=== PATIENT | male | born 1955 | race African-American/Black ===

== ENCOUNTER 2017-03-07 13:32 | Emergency (ER) | payer OTHER ==
[2017-03-07 14:05] VITALS: BP 161/85
[2017-03-07] MEDS ORDERED: Penicillin VK TAB* 250 MG PO ONE (14:34)
--- NOTE | 2017-03-07 14:40 | ED ---
Throat Pain/Nasal Congestion - HPI Summary HPI Summary: 61M presents with dental pain and cough with sore throat. He is Liberian speaking with limited Azeri. He states the dental pain started two days and and is located on the back of his left lower tooth. He denies any fever, chest pain, SOB, difficult swallowing or swelling of neck. He also admits to dry cough and sore throat and nasal congestion for 2 months. He states he has allergies and has been using a nasal spray without relief. He denies any dysphagia but states has irritation of throat that makes want to cough. - History of Current Complaint Chief Complaint: EDThroatPain Time Seen by Provider: 03/07/17 13:36 - Allergies/Home Medications Allergies/Adverse Reactions: Allergies Allergy/AdvReac Type Severity Reaction Status Date / Time No Known Allergies Allergy Verified 07/13/16 08:14 PMH/Surg Hx/FS Hx/Imm Hx Endocrine/Hematology History: Reports: Hx Diabetes Cardiovascular History: Reports: Hx Hypercholesterolemia, Hx Hypertension Denies: Hx Congestive Heart Failure History: Reports: Hx Renal Disease Infectious Disease History: No Infectious Disease History: Denies: Traveled Outside the [place] in Last 30 Days - Family History Known Family History: Positive: Cardiac Disease, Hypertension, Diabetes - Social History Alcohol Use: None Substance Use Type: Reports: None Hx Tobacco Use: No Smoking Status (MU): Never Smoked Tobacco Review of Systems Negative: Fever Positive: Dental Pain, Sore Throat, Nasal Discharge Negative: Chest Pain Positive: Cough. Negative: Shortness Of Breath All Other Systems Reviewed And Are Negative: Yes Physical Exam Triage Information Reviewed: Yes Vital Signs On Initial Exam: Initial Vitals Temp Pulse Resp BP Pulse Ox 98.1 F 79 18 161/85 100 03/07/17 14:00 03/07/17 14:00 03/07/17 14:00 03/07/17 14:00 03/07/17 14:00 Vital Signs Reviewed: Yes Appearance: Positive: Well-Appearing Skin: Positive: Warm, Dry Head/Face: Positive: Normal Head/Face Inspection Eyes: Positive: Normal, EOMI, ALEX, Conjunctiva Clear ENT: Positive: Normal ENT inspection, Pharynx normal - some post nasal drip present, Nasal congestion, TMs normal Dental: Positive: Percussion Tenderness @ - 17. Negative: Abscess @, Bleeding Neck: Positive: Supple, Nontender, No Lymphadenopathy Respiratory/Lung Sounds: Positive: Clear to Auscultation, Breath Sounds Present Cardiovascular: Positive: Normal, RRR Diagnostics - Vital Signs Vital Signs Temp Pulse Resp BP Pulse Ox 03/07/17 14:29 98.1 F 79 18 161/85 100 03/07/17 14:00 98.1 F 79 18 161/85 100 - Laboratory Lab Statement: Any lab studies that have been ordered have been reviewed, and results considered in the medical decision making process. EENT Course/Dx - Course Course Of Treatment: 61 M presents with dental pain for 2 days. It is 17 tooth hurt. denies any fever. no abscess seen will treat with pain medication and antibiotics. also complains of cough and sore throat for 2 months. denies any dysphagia. has history of allergies and is using nasal steriod. told to continue nasal steriod and add zytrec as symptoms likely allergy related. patient understands and agrees with plan - Differential Diagnoses Differential Diagnoses: Allergic Rhinitis, Dental Abscess, Dental Caries, Fractured Tooth - Diagnoses Provider Diagnoses: Pain, dental, Cough, Sore throat Discharge - Discharge Plan Condition: Good Disposition: HOME Prescriptions: Cetirizine* [ZyrTEC 10 MG TAB*] 10 mg PO DAILY #20 tab Penicillin VK TAB* [Penicillin VK 250 mg Tab*] 500 mg PO QID #27 tab oxyCODONE/Acetamin 5/325 MG* [Percocet 5/325 TAB*] 1 tab PO Q6H PRN #8 tab MDD 4 PRN Reason: Pain Patient Education Materials: Toothache (ED) Referrals: Westley Tovar MD [Primary Care Provider] - Additional Instructions: Continue nasal spray for nose Take zyrtec once a day Take antibiotics: 4 times a day for 7 days, first dose given in ED Use ibuprofen or tyenlol every 6 hours and narcotic for break through pain Avoid hard, crunchy food until seen by dentist Follow up with dentist as soon as possible Return to ED if develop fever, shortness of breath, pain with eye movement or swelling around eye Images - Images Dental: 1 - pain
[2017-03-07] MEDS ORDERED: Ibuprofen TAB* 600 MG PO ONE (14:42)
[2017-03-07] MEDS ORDERED: oxyCODONE/Acetamin 5/325 MG* TAB PO ONE (15:06)
== END 2017-03-07 15:13 | disposition home or self-care (01) ==
LOC: ED 13:32
DX: J02.9 Acute pharyngitis, unspecified (principal); K08.89 Other specified disorders of teeth and supporting structures; R05 Cough
CPT/HCPCS: 99282; A9270-GY

== ENCOUNTER → 2017-03-08 14:39 | Emergency (ER) | payer OTHER ==
[2017-03-08 15:00] VITALS: BP 133/82
== END | disposition left against medical advice (07) ==
LOC: ED 14:39
DX: K08.89 Other specified disorders of teeth and supporting structures (principal); Z53.21 Procedure and treatment not carried out due to patient leaving prior to being seen by health care provider

== ENCOUNTER 2017-04-30 10:27 | Emergency (ER) | payer OTHER ==
[2017-04-30] MEDS ORDERED: Ibuprofen TAB* 400 MG PO ONE (12:07)
[2017-04-30 12:35] VITALS: BP 131/80
--- NOTE | 2017-04-30 13:07 | RAD ---
HISTORY: Left arm pain, tingling, subacute trauma COMPARISONS: None TECHNIQUE: Multiple contiguous axial CT scans were obtained of the cervical spine without intravenous contrast, with coronal and sagittal multiplanar reformations. FINDINGS: BRAIN: The visualized brain is unremarkable CENTRAL CANAL: Evaluation of the central canal is limited on CT technique; however, there is no obvious canalicular mass or epidural hemorrhage. ALIGNMENT: The alignment is normal, without subluxation or dislocation. VERTEBRAL BODIES: There is anterolateral marginal osteophyte formation at C5-C6 and C6-C7. There is no displaced fracture or dislocation JOINTS: There is uncovertebral hypertrophy at C6-C7. MUSCULATURE: Unremarkable INTERVERTEBRAL DISCS: There is diffuse loss of intervertebral disc height. AXIAL IMAGES: C2-C3: There is no osseous neural foraminal narrowing or central canal stenosis. C3-C4: There is no osseous neural foraminal narrowing or central canal stenosis. C4-C5: There is no osseous neural foraminal narrowing or central canal stenosis. C5-C6: There is no osseous neural foraminal narrowing or central canal stenosis. C6-C7: There is bilateral uncovertebral hypertrophy with moderate bilateral neural foraminal narrowing. C7-T1: There is no osseous neural foraminal narrowing or central canal stenosis. SOFT TISSUES: The visualized soft tissues of the neck are unremarkable. The prevertebral fat stripe is preserved. OTHER: None. IMPRESSION: DEGENERATIVE DISC DISEASE AND OSTEOARTHRITIS MOST PRONOUNCED AT C5-C6 AND C6-C7. NO ACUTE OSSEOUS INJURY TO THE CERVICAL SPINE
--- NOTE | 2017-04-30 13:40 | ED ---
Upper Extremity Pain - HPI Summary HPI Summary: Patient presents with one month of left shoulder and right thumb pain that began after falling. The pain in the left shoulder and arm feel like a deep ache with movement and keep him awake at night. He has not tried over the counter medication to help with his pain. His thumb hurts with movement as well. No swelling, redness, warmth, N/T in either area. - History of Current Complaint Chief Complaint: EDExtremityUpper Stated Complaint: RT HAND / THUMB PAIN Hx Obtained From: Patient Mechanism Of Injury: Fall From A Standing Position Onset/Duration: Started Weeks Ago - 4, Traumatic, Still Present Timing: Constant Severity Initially: Mild Severity Currently: Moderate Pain Location: Shoulder - left, Finger - right thumb Character: Dull, Aching Aggravating Factor(s): Movement Alleviating Factor(s): Nothing Associated Signs & Symptoms: Positive: Negative Related History: Dominant Hand Right - Allergies/Home Medications Allergies/Adverse Reactions: Allergies Allergy/AdvReac Type Severity Reaction Status Date / Time No Known Allergies Allergy Verified 07/13/16 08:14 PMH/Surg Hx/FS Hx/Imm Hx Endocrine/Hematology History: Reports: Hx Diabetes Cardiovascular History: Reports: Hx Hypercholesterolemia, Hx Hypertension Denies: Hx Congestive Heart Failure History: Reports: Hx Renal Disease Infectious Disease History: No Infectious Disease History: Denies: Traveled Outside the [place] in Last 30 Days - Family History Known Family History: Positive: Cardiac Disease, Hypertension, Diabetes - Social History Occupation: Employed Part-time Lives: With Family Alcohol Use: None Substance Use Type: Reports: None Hx Tobacco Use: No Smoking Status (MU): Never Smoked Tobacco Review of Systems Negative: Fever, Chills Negative: Chest Pain Negative: Shortness Of Breath Positive: Myalgia Negative: Weakness, Paresthesia, Numbness All Other Systems Reviewed And Are Negative: Yes Physical Exam Triage Information Reviewed: Yes Vital Signs On Initial Exam: Initial Vitals Temp Pulse Resp BP Pulse Ox 97.7 F 72 16 130/84 98 04/30/17 10:32 04/30/17 10:32 04/30/17 10:32 04/30/17 10:32 04/30/17 10:32 Vital Signs Reviewed: Yes Appearance: Positive: Well-Appearing, No Pain Distress, Well-Nourished Skin: Positive: Warm, Skin Color Reflects Adequate Perfusion, Dry, Soft Head/Face: Positive: Normal Head/Face Inspection Eyes: Positive: EOMI, ALEX, Conjunctiva Clear ENT: Positive: Hearing grossly normal Respiratory/Lung Sounds: Positive: Breath Sounds Present Cardiovascular: Positive: RRR Musculoskeletal: Positive: Limited @ - Movement in all planes limited by pain in right thumb and left shoulder, Pain @ - TTP base of right thumb; TTP left shoulder deltoid and bicipitacl groove; non-tender cervical spine. Negative: Edema Left, Edema Right Neurological: Positive: Sensory/Motor Intact, Alert, Oriented to Person Place, Time, NV Bundle Intact Distally, Normal Gait Psychiatric: Positive: Affect/Mood Appropriate AVPU Assessment: Alert Diagnostics - Vital Signs Vital Signs Temp Pulse Resp BP Pulse Ox 04/30/17 12:33 98.3 F 74 18 131/80 100 04/30/17 10:32 97.7 F 72 16 130/84 98 - Laboratory Lab Statement: Any lab studies that have been ordered have been reviewed, and results considered in the medical decision making process. - Radiology No standard instances Xray Interpretation: No Acute Changes Radiology Interpretation Completed By: Radiologist - CT No standard instances CT Interpretation: No Acute Changes CT Interpretation Completed By: Radiologist Course/Dx - Diagnoses Differential Diagnosis/HQI/PQRI: Positive: Arthritis, Bursitis, Contusion, Hematoma, Localized Burn, Strain, Sprain Provider Diagnoses: Pain of right thumb, Left shoulder pain Discharge - Discharge Plan Condition: Stable Disposition: HOME Patient Education Materials: Musculoskeletal Pain (ED) Referrals: Westley Tovar MD [Primary Care Provider] - Additional Instructions: Please use ibuprofen 600mg three times daily with meals for the next 5-7 days to decrease pain. Follow-up with your primary care provider in 3-5 days for re- evaluation. Return to the emergency department if symptoms worsen.
--- NOTE | 2017-04-30 14:02 | RAD ---
HISTORY: Right thumb pain, trauma COMPARISONS: None VIEWS: 3, Frontal, lateral, and oblique views of the first digit of the right hand FINDINGS: BONE DENSITY: Normal. BONES: There is no displaced fracture. JOINTS: There is mild osteoarthritis of the first MCP, MCP and interphalangeal joint ALIGNMENT: There is no dislocation. SOFT TISSUES: Unremarkable. OTHER FINDINGS: None. IMPRESSION: NO ACUTE OSSEOUS INJURY. IF SYMPTOMS PERSIST, RECOMMEND REPEAT IMAGING.
--- NOTE | 2017-04-30 14:02 | RAD ---
Indication: LEFT shoulder pain. Comparison: No relevant prior exams available on the [facility]. Technique: Internal rotation AP, external rotation Grashey, scapular Y, axillary views LEFT shoulder Report: Normal acromioclavicular and glenohumeral joint alignment. Minimal AC joint osteophytosis. Type II acromial morphology with small anterior inferior bone spur. Mild glenohumeral joint space narrowing. Negative for fracture, stigmata of calcific tendinopathy, or abnormal soft tissue contour. IMPRESSION: Mild osteoarthritis.
== END 2017-04-30 14:04 | disposition home or self-care (01) ==
LOC: ED 10:27
DX: M79.644 Pain in right finger(s) (principal); M25.512 Pain in left shoulder
CPT/HCPCS: 72125; 99282; A9270-GY

== ENCOUNTER 2017-08-04 11:29 | Emergency (ER) | payer OTHER ==
[2017-08-04] MEDS ORDERED: Aspirin Low Dose CHEW TAB* 81 MG PO ONE (11:43)
[2017-08-04 12:22] LABS: Hematocrit 41 % (42-52); Hemoglobin 13.4 g/dl (14.0-18.0); Mean Corpuscular HGB Conc 33 g/dl (31-36); Mean Corpuscular Hemoglobin 29 pg (27-31); Mean Corpuscular Volume 90 fL (80-94); Mean Platelet Volume 9 um3 (7.4-10.4); Red Blood Count 4.53 10^6/ul (4.0-5.4); Red Cell Distribution Width 14 % (10.5-15)
--- NOTE | 2017-08-04 12:25 | RAD ---
INDICATION: Chest pain COMPARISON: October 08, 2016 TECHNIQUE: An AP portable view obtained at 1220 hours is submitted. FINDINGS: Bones/Soft Tissues: There are no acute bony findings. Cardiomediastinal: The cardiomediastinal silhouette is normal. Lungs: There are no infiltrates. Pleura: There are no pleural effusions. Other: None IMPRESSION: NO ACTIVE DISEASE.
[2017-08-04 12:48] LABS: Albumin 4.4 g/dL (3.2-5.2); BUN/Creatinine Ratio 13.7 (8-20); Calcium 9.2 mg/dL (8.6-10.3); EGFR African American 103.7 (>60); EGFR Non-African American 80.6 (>60); Globulin 2.9 g/dL (2-4); Magnesium 1.9 mg/dL (1.9-2.7); Potassium 4.3 mmol/L (3.5-5.0); Total Bilirubin 0.6 mg/dL (0.2-1.0); Total Protein 7.3 g/dL (6.4-8.9)
[2017-08-04 13:46] LABS: TSH (Thyroid Stimulating Horm) 1.92 mcIU/mL (0.34-5.60)
[2017-08-04 15:18] VITALS: BP 132/81
--- NOTE | 2017-08-05 21:04 | ED ---
Erika Burris Edward, scribed for Howard Villarreal MD on 08/04/17 at 1137 . Hypertension - HPI Summary HPI Summary: 61 y/o male presents to the ED c/o CP and palpitations starting a couple of days ago, along with increased blood pressure. The CP is an intermittent sharp pain that does not radiate and is rated 4/10 in severity currently. On 07/26/17 the pt reported having a blood pressure of 141/101. Yesterday it was 165/103. In the ED it was 144/93. PMHx DM, HLD. No past surgeries. Associated sx: abrasion on L cheek secondary to shaving. - History of Current Complaint Stated Complaint: HIGH BLOOK PRESSURE/FAST HEART RATE Hx Obtained From: Patient Onset/Duration: Started Days Ago Timing: Intermittent Associated Signs & Symptoms: Other: - HTN, palpitations, abrasion @ L cheek secondary to shaving - Allergies/Home Medications Allergies/Adverse Reactions: Allergies Allergy/AdvReac Type Severity Reaction Status Date / Time No Known Allergies Allergy Verified 07/13/16 08:14 PMH/Surg Hx/FS Hx/Imm Hx Previously Healthy: No Endocrine/Hematology History: Reports: Hx Diabetes Cardiovascular History: Reports: Hx Hypercholesterolemia, Hx Hypertension Denies: Hx Congestive Heart Failure History: Reports: Hx Renal Disease - Surgical History Surgery Procedure, Year, and Place: N/A - Family History Known Family History: Positive: Cardiac Disease, Hypertension, Diabetes - Social History Alcohol Use: None Hx Substance Use: No Substance Use Type: Reports: None Hx Tobacco Use: No Smoking Status (MU): Never Smoked Tobacco Review of Systems Constitutional: Negative Eyes: Negative ENT: Negative Positive: Palpitations, Chest Pain, Other - High blood pressure Respiratory: Negative Gastrointestinal: Negative Genitourinary: Negative Musculoskeletal: Negative Skin: Other - abrasion @ L cheek secondary to shaving Neurological: Negative Psychological: Normal All Other Systems Reviewed And Are Negative: Yes Physical Exam - Summary Physical Exam Summary: VITAL SIGNS: Reviewed. GENERAL: Patient is a well-developed and nourished male who is lying comfortable in the stretcher. Patient is not in any acute respiratory distress. HEAD AND FACE: No signs of trauma. No ecchymosis, hematomas or skull depressions. No sinus tenderness. EYES: PERRLA, EOMI x 2, No injected conjunctiva, no nystagmus. EARS: Hearing grossly intact. Ear canals and tympanic membranes are within normal limits. MOUTH: Oropharynx within normal limits. NECK: Supple, trachea is midline, no adenopathy, no JVD, no carotid bruit, no c- spine tenderness, neck with full ROM. CHEST: Symmetric, no tenderness at palpation LUNGS: Clear to auscultation bilaterally. No wheezing or crackles. CVS: Regular rate and rhythm, S1 and S2 present, no murmurs or gallops appreciated. ABDOMEN: Soft, non-tender. No signs of distention. No rebound no guarding, and no masses palpated. Bowel sounds are normal. EXTREMITIES: FROM in all major joints, no edema, no cyanosis or clubbing. NEURO: Alert and oriented x 3. No acute neurological deficits. Speech is normal and follows commands. SKIN: Dry and warm Triage Information Reviewed: Yes Vital Signs On Initial Exam: Initial Vitals BP 144/93 08/04/17 11:38 Vital Signs Reviewed: Yes Diagnostics - Vital Signs Vital Signs Temp Pulse Resp BP Pulse Ox 08/04/17 15:17 98.3 F 56 16 132/81 08/04/17 13:00 16 122/76 08/04/17 12:30 15 145/72 08/04/17 12:00 21 146/96 08/04/17 11:42 98.0 F 75 20 144/93 98 08/04/17 11:38 144/93 - Laboratory Lab Results: Lab Results 08/04/17 08/04/17 08/04/17 Range/Units 12:05 12:05 12:05 WBC 6.0 (3.5-10.8) 10^3/ul RBC 4.53 (4.0-5.4) 10^6/ul Hgb 13.4 L (14.0-18.0) g/dl Hct 41 L (42-52) % MCV 90 (80-94) fL MCH 29 (27-31) pg MCHC 33 (31-36) g/dl RDW 14 (10.5-15) % Plt Count 211 (150-450) 10^3/ul MPV 9 (7.4-10.4) um3 Neut % (Auto) 48.1 (38-83) % Lymph % (Auto) 30.8 (25-47) % Tompkins % (Auto) 10.4 H (1-9) % Eos % (Auto) 8.8 H (0-6) % Baso % (Auto) 1.9 (0-2) % Absolute Neuts (auto) 2.9 (1.5-7.7) 10^3/ul Absolute Lymphs (auto) 1.8 (1.0-4.8) 10^3/ul Absolute Monos (auto) 0.6 (0-0.8) 10^3/ul Absolute Eos (auto) 0.5 (0-0.6) 10^3/ul Absolute Basos (auto) 0.1 (0-0.2) 10^3/ul Absolute Nucleated RBC 0 10^3/ul Nucleated RBC % 0.1 Sodium 136 (133-145) mmol/L Potassium 4.3 (3.5-5.0) mmol/L Chloride 104 (101-111) mmol/L Carbon Dioxide 26 (22-32) mmol/L Anion Gap 6 (2-11) mmol/L BUN 13 (6-24) mg/dL Creatinine 0.95 (0.67-1.17) mg/dL Est GFR ( Amer) 103.7 (>60) Est GFR (Non-Af Amer) 80.6 (>60) BUN/Creatinine Ratio 13.7 (8-20) Glucose 142 H (70-100) mg/dL Lactic Acid (0.5-2.0) mmol/L Calcium 9.2 (8.6-10.3) mg/dL Magnesium 1.9 (1.9-2.7) mg/dL Total Bilirubin 0.60 (0.2-1.0) mg/dL AST 19 (13-39) U/L ALT 24 (7-52) U/L Alkaline Phosphatase 45 (34-104) U/L CK-MB (CK-2) 2.0 (0.6-6.3) ng/mL Troponin I 0.00 (<0.04) ng/mL B-Natriuretic Peptide 11 ( - 100) pg/mL Total Protein 7.3 (6.4-8.9) g/dL Albumin 4.4 (3.2-5.2) g/dL Globulin 2.9 (2-4) g/dL Albumin/Globulin Ratio 1.5 (1-3) TSH 1.92 (0.34-5.60) mcIU/mL 08/04/17 08/04/17 Range/Units 12:05 14:20 WBC (3.5-10.8) 10^3/ul RBC (4.0-5.4) 10^6/ul Hgb (14.0-18.0) g/dl Hct (42-52) % MCV (80-94) fL MCH (27-31) pg MCHC (31-36) g/dl RDW (10.5-15) % Plt Count (150-450) 10^3/ul MPV (7.4-10.4) um3 Neut % (Auto) (38-83) % Lymph % (Auto) (25-47) % Tompkins % (Auto) (1-9) % Eos % (Auto) (0-6) % Baso % (Auto) (0-2) % Absolute Neuts (auto) (1.5-7.7) 10^3/ul Absolute Lymphs (auto) (1.0-4.8) 10^3/ul Absolute Monos (auto) (0-0.8) 10^3/ul Absolute Eos (auto) (0-0.6) 10^3/ul Absolute Basos (auto) (0-0.2) 10^3/ul Absolute Nucleated RBC 10^3/ul Nucleated RBC % Sodium (133-145) mmol/L Potassium (3.5-5.0) mmol/L Chloride (101-111) mmol/L Carbon Dioxide (22-32) mmol/L Anion Gap (2-11) mmol/L BUN (6-24) mg/dL Creatinine (0.67-1.17) mg/dL Est GFR ( Amer) (>60) Est GFR (Non-Af Amer) (>60) BUN/Creatinine Ratio (8-20) Glucose (70-100) mg/dL Lactic Acid 1.4 (0.5-2.0) mmol/L Calcium (8.6-10.3) mg/dL Magnesium (1.9-2.7) mg/dL Total Bilirubin (0.2-1.0) mg/dL AST (13-39) U/L ALT (7-52) U/L Alkaline Phosphatase (34-104) U/L CK-MB (CK-2) (0.6-6.3) ng/mL Troponin I 0.00 (<0.04) ng/mL B-Natriuretic Peptide ( - 100) pg/mL Total Protein (6.4-8.9) g/dL Albumin (3.2-5.2) g/dL Globulin (2-4) g/dL Albumin/Globulin Ratio (1-3) TSH (0.34-5.60) mcIU/mL Result Diagrams: 08/04/17 12:05 08/04/17 12:05 Lab Statement: Any lab studies that have been ordered have been reviewed, and results considered in the medical decision making process. - Radiology CXR Xray Interpretation: No Acute Changes - NO ACTIVE DISEASE Radiology Interpretation Completed By: Radiologist - EKG 1 EKG Interpretation: 11:50 - SR @ [address] wave inversions in II, III and aVF EKG Comparison: No Significant Change - 10/08/16 Hypertension Course/Dx - Course Assessment/Plan: 61 y/o male presents to the ED c/o CP and palpitation starting a couple of days ago along with increased blood pressure. The CP is an intermittent sharp pain that does not radiate and is rated 4/10 in severity currently. On 07/26/17 the pt reported having a blood pressure of 141/101. Yesterday it was 165/103. In the ED it was 144/93. PMHx DM, HLD. No past surgeries. EKG @ 11:50 - SR @ [address] wave inversions in II, III and aVF. No significant change from 10/08/16. CXR SHOWS NO ACTIVE DISEASE. Test results without any significant abnormalities. First trop 0.00. 4 hours later the second troponin was also 0.00. Blood pressure is much improved without any indications 132/81. Pt symptoms have subsided, therefore the pt will be d/c home with f/u with PCP. The pt is hemodynamically stable and A&Ox3. - Diagnoses Differential Diagnosis/HQI PQRI: Angina, Hypertension, Myocardial Infarction Provider Diagnoses: Chest pain, Uncontrolled hypertension Discharge - Discharge Plan Condition: Stable Disposition: HOME Patient Education Materials: Hypertension (ED), Chest Pain (ED) Referrals: Westley Tovar MD [Primary Care Provider] - 3 Days (PLEASE F/U IN 2-3 DAYS) The documentation as recorded by the Erika kathleen Edward accurately reflects the service I personally performed and the decisions made by , Howard Villarreal MD.
== END 2017-08-04 15:17 | disposition home or self-care (01) ==
LOC: ED 11:29
DX: R07.9 Chest pain, unspecified (principal); I10 Essential (primary) hypertension; E11.9 Type 2 diabetes mellitus without complications; E78.5 Hyperlipidemia, unspecified; E78.00 Pure hypercholesterolemia, unspecified
CPT/HCPCS: 36415; 71010; 80053; 82553; 83605; 83735; 83880; 84443; 84484; 85025; 87040; 93005; 99283; A9270-GY

== ENCOUNTER 2017-10-09 11:11 | Day surgery (SDC) | payer OTHER ==
[~2017-10-09 11:11] MED LIST: Acetaminophen TAB* 325 MG PO PRN; Buffered Lidocaine 0.9% SYRIN* 5 ML/SYR SYRINGE INTRADERM ONE; Phenylephr/Ketorolac 1%/0.3% OPH DROP BTL ONE
[2017-10-09] MEDS ORDERED: Midazolam* 1 MG/ML 2 ML VIAL (2 MG) ONE (12:11)
[2017-10-09] MEDS ORDERED: fentaNYL* 50 MCG/ML 2 ML VIAL (100 MCG VIAL) ONE (12:40)
[2017-10-09 13:30] VITALS: BP 134/87
[2017-10-09] MEDS ORDERED: Phenylephrine 2.5% OPTH.SOL* 2 ML BTL ONE (15:27)
[2017-10-09] MEDS ORDERED: Ketorolac 0.5% OPHTH (NF) 0.5 % 5 ML BTL ONE (15:27)
[2017-10-09] MEDS ORDERED: Tropicamide 1% OPTH.SOL* BTL ONE (15:27)
[2017-10-09] MEDS ORDERED: Cyclopentolate 1% OPTH.SOL* 2 ML BTL ONE (15:27)
[2017-10-09] MEDS ORDERED: Neomycin/Polymy/Dex OPHTH.OIN* 3.5 GM ONE (15:27)
[2017-10-09] MEDS ORDERED: Lidocaine 1% MPF* 2 ML VIAL ONE (15:27)
[2017-10-09] MEDS ORDERED: Tetracaine 0.5% OPTH.SOL 4 ML* 1 DROP BTL ONE (15:27)
--- NOTE | 2017-10-10 03:13 | OP ---
DATE OF OPERATION: 10/09/17 - [facility] DATE OF : 55 SURGEON: Clifford Armenta MD [employer] EXAMINER: None. ANESTHESIA: Topical with intravenous sedation. PRE-OP DIAGNOSIS: Cataract, left eye and glaucoma, left eye. POST-OP DIAGNOSIS: Cataract, left eye and glaucoma, left eye. OPERATIVE PROCEDURE: Cataract extraction with posterior chamber intraocular lens implant and eye stent placement, left eye. COMPLICATIONS: None. ESTIMATED BLOOD LOSS: None. DESCRIPTION OF PROCEDURE: The patient was brought to the operating room and received a small amount of intravenous sedation. He was prepped and draped in the usual sterile fashion for ophthalmic surgery and attention was directed to the left eye where a speculum was placed. A paracentesis was created at the 5 o 'clock position and 0.1 cc of 1% preservative free lidocaine was injected into the anterior chamber followed by DisCoVisc. The eye was digitally stabilized while a 2.75 mm keratome was used to create a triplanar clear corneal incision at the 3 o'clock position. A continuous curvilinear capsulorrhexis was created with a cystotome and Utrata forceps. BSS on a cannula was used to hydrodissect the lens from the capsule. Phacoemulsification was performed in a divide-and- conquer technique to create 4 fragments, which were removed. Residual cortical material was removed with irrigation and aspiration. DisCoVisc was used to inflate the capsular bag. An AUOOTO 20.5 Diopter lens was inserted into the capsular bag. Supplemental DisCoVisc was used to deepen the anterior chamber and coat the surface of the cornea. The patient's head was rotated away from the surgeon and a microscope was rotated towards the surgeon. An corneal prism was placed on the surface of the eye and an eye stent on an circulation crew leader was introduced into the anterior chamber. Under direct visualization, the eye stent was inserted into the nasal trabecular meshwork. The circulation crew leader and corneal prism were removed. The eye and the head were returned to upright position as was the microscope. Irrigation and aspiration was performed to remove viscoelastic from the eye. BSS on a cannula was used to hydrate the corneal stroma and seal the wound. At the end of the case, the lens was centered and stable. The eye stent was in place. The eye pressure appeared normal and the wound was watertight. The speculum was removed. Topical Maxitrol ointment was placed on the surface of the eye. The eye was closed, patched, and shielded, and the patient was sent to recovery room in stable condition with postop instructions and followup appointment given. [id number]/[facility] #: [id number] [place]
== END 2017-10-09 13:21 | disposition home or self-care (01) ==
LOC: OREAST 11:11
PROVIDERS: ATTEND Ophthalmology
DX: H25.11 Age-related nuclear cataract, right eye (principal); H40.89 Other specified glaucoma; E11.9 Type 2 diabetes mellitus without complications; Z79.84 Long term (current) use of oral hypoglycemic drugs; K21.9 Gastro-esophageal reflux disease without esophagitis
CPT/HCPCS: A9270-GY; C1783; C9447; J2250; J3010; V2632

== ENCOUNTER 2019-08-05 11:36 | Observation (INO) | payer OTHER ==
--- NOTE | 2019-08-05 12:24 | ED ---
HPI Chest Pain - HPI Summary HPI Summary: Pt is a 63 y/o M presenting to the ED for a chief complaint of chest pain described as a burning sensation that began on 08/04/19. Pt history was translated by Jane, machinist apprentice wood number [id number], as pt is a primary Croatian speaker. Pt describes the chest pain as mild shock. Pt has a cough with copious phlegm from his nose and throat especially after eating and he states he cannot eat because of the phlegm. Patient reports palpitations and asks for his glucose level to be checked, which was 133 at triage. He only checks his blood sugar during visits to his primary care provider every 3 months, because he cannot check his glucose at home. He also admits pain in the bilateral legs from the knee down to the soles of the feet and back pain. He states he exercises daily which is why he believes he has lower extremity and low back pain. His PCP is Dr. Tovar. Pt took his medications today. Pt denies SOB, nausea, vomiting, or fever. During the last 4 years, he has had minor heart problems and he has always been seen at [facility] [place] [facility]. He has not seen the technical consultant to which he was referred because he could not find the address. Pt has a PMHx of DM Type II without insulin, HTN, and hypercholesterolemia. Pt has a past SHx of eye surgery and a FMHx of ND, cardiac problems, and DM. Pt denies tobacco, drug, or alcohol use. Allergies noted. Note: Frantz RN note states pain started today. Pt stated that pain started 08/04/[address] Taylor. Also note that Dr. Taylor evaluated pt, not Dr. Villarreal. - History of Current Complaint Chief Complaint: EDChestPainROMI Time Seen by Provider: 08/05/19 11:44 Hx Obtained From: Patient, Marketing Communication Manager - Marketing Communication Manager [id number], Jane, assists with Croatian translation Onset/Duration: Started Hours Ago, Atraumatic, Still Present Timing: Lasting Hours Initial Severity: Moderate Current Severity: Moderate Pain Intensity: 6 Pain Scale Used: 0-10 Numeric Chest Pain Location: Diffuse Chest Pain Radiates: No Character: Burning, Cough, Productive - with copious phlegm, Other: - also describes chest pain as mild "shock" Aggravating Factor(s): Nothing Alleviating Factor(s): Nothing Associated Signs and Symptoms: Positive: Chest Pain, Palpitations, Cough, Productive Cough, Back Pain, Nasal Congestion, Other: - Bilateral LE pain.. Negative: Shortness of Breath, Fever, Nausea, Nonproductive Cough, Vomiting - Allergy/Home Medications Allergies/Adverse Reactions: Allergies Allergy/AdvReac Type Severity Reaction Status Date / Time lisinopril AdvReac Intermediate Coughing Verified 08/05/19 12:11 Home Medications: Home Medications Deep Sea 0.65% Nasal Cunningham 1 spray BOTH NARES Q4HR PRN 08/05/19 [History Confirmed 08/05/19] PMH/Surg Hx/FS Hx/Imm Hx Previously Healthy: No Endocrine/Hematology History: Reports: Hx Diabetes Cardiovascular History: Reports: Hx Hypercholesterolemia, Hx Hypertension Denies: Hx Congestive Heart Failure - Surgical History Surgical History: Yes Surgery Procedure, Year, and Place: Eye surgery Infectious Disease History: No Infectious Disease History: Denies: Traveled Outside the [place] in Last 30 Days - Family History Known Family History: Positive: Cardiac Disease, Hypertension, Diabetes - Social History Lives: Alone Alcohol Use: None Hx Substance Use: No Substance Use Type: Reports: None Hx Tobacco Use: No Smoking Status (MU): Never Smoked Tobacco Review of Systems Negative: Fever Positive: Palpitations, Chest Pain Positive: Cough - with copious phlegm. Negative: Shortness Of Breath Negative: Vomiting, Nausea Positive: Myalgia - low back and bilateral LE Skin: Negative Neurological: Negative Psychological: Normal All Other Systems Reviewed And Are Negative: Yes Physical Exam - Summary Physical Exam Summary: Appearance: Well-appearing, moderate pain distress, well-nourished Skin: Warm, color reflects adequate perfusion, dry Head: Normal Head/Face inspection, atraumatic Eyes: Conjunctiva clear ENT: Normal inspection Neck: Supple, no nodes, no JVD Respiratory: Lungs clear, normal breath sounds, no respiratory distress Cardio: RRR, No murmur, pulses normal, brisk capillary refill Abdomen: Soft, nontender Bowel sounds: Present Musculoskeletal: Strength Intact/ROM intact, no calf tenderness, no edema. Psychological: Normal Neuro: Alert, muscle tone normal, no focal deficit Triage Information Reviewed: Yes Vital Signs On Initial Exam: Initial Vitals Temp Pulse Resp BP Pulse Ox 97.8 F 65 20 148/83 100 08/05/19 11:45 08/05/19 11:45 08/05/19 11:45 08/05/19 11:45 08/05/19 11:45 Vital Signs Reviewed: Yes Diagnostics - Vital Signs Vital Signs Temp Pulse Resp BP Pulse Ox 08/05/19 11:45 97.8 F 65 20 148/83 100 - Laboratory Lab Results: Lab Results 08/05/19 Range/Units 11:40 POC Glucose (mg/dL) 133 H (70-100) mg/dL Result Diagrams: 08/05/19 12:25 08/05/19 12:25 Lab Statement: Any lab studies that have been ordered have been reviewed, and results considered in the medical decision making process. - Radiology CXR Radiology Interpretation Completed By: Radiologist Summary of Radiographic Findings: IMPRESSION: NO ACUTE CARDIOPULMONARY PROCESS BY RADIOGRAPH. THIS REPORT WAS REVIEWED BY DR. TAYLOR. - EKG 11:38 Cardiac Rate: Bradycardia - 58 BPM EKG Rhythm: Sinus Bradycardia ST Segment: Non-Specific Ectopy: None Summary of EKG Findings: EKG on 08/05/19 at 11:38 shows 58 BPM sinus bradycardia , Nl AVIVCT, nl QTc, flat ST segments in II, III, aVF are now normalized instead of inverted compared with 08/04/17. Reviewed and interpreted by ED physician. Re-Evaluation - Re-Evaluation First Eval Re-Evaluation Time: 13:40 Change: Unchanged Comment: Pt's chest pain is controlled. Pt advised that he will be admitted. Chest Pain Course/Dx - Course Course Of Treatment: Pt is 63 yo primarily Croatian speaking male with hx DM, HTN and hypercholesterolemia presenting with chest pain x 1 day, cough with copious phlegm, low back pain, and bilateral lower extremity pain. Pt does not monitor his glucoses at home, so also asked for his glucose to be checked. It was 133 at triage. Pt's hx and exam were conducted with iPad contract loader. EKG on 08/05/19 at 11:38 shows 58 BPM sinus bradycardia, nml intervals, flat ST in II, III, aVF have normalized and comparable to 08/04/17. ST is now flat instead of inverted. Not a STEMI. EKG was read and interpreted by Dr. Taylor. In the ED course, pt was given ASA 324mg po. Laboratory abnormal findings: Hgb 13.5, Hct 40, absolute eos 0.7, glucose 122, POC glucose 133, magnesium 1.8. Troponin I 0.01 at 14:47 and 0.00 at 18:15 and D-dimer <200. Chest x-ray IMPRESSION: NO ACUTE CARDIOPULMONARY PROCESS BY RADIOGRAPH. Dr. Taylor reviewed this report. Patient will be admitted to [facility] [place] by Dr. Saravia with a diagnosis of chest pain and acute EKG changes. - Chest Pain Differential Diagnosis/HQI/PQRI: Acute ND, ACS, Angina, CHF, GI Disease, Lower Respiratory Infection - Diagnoses Provider Diagnoses: Chest pain, Acute electrocardiogram changes - Provider Notifications Discussed Care Of Patient With: Laine Saravia - agrees to admit Time Discussed With Above Provider: 13:34 Instructed by Provider To: Admit As Observation Discharge ED - Sign-Out/Discharge Documenting (check all that apply): Patient Departure - admit All imaging exams completed and their final reports reviewed: Yes - Discharge Plan Condition: Improved Disposition: ADMITTED TO [facility] - Billing Disposition and Condition Condition: IMPROVED Disposition: Admitted to [facility] - Attestation Statements Document Initiated by Scribe: Yes Documenting Scribe: Ciera Andino Provider For Whom Scribe is Documenting (Include Credential): Almaz Taylor MD. Scribe Attestation: ICiera, scribed for Almaz Taylor MD. on 08/31/19 at 0631. Scribe Documentation Reviewed: Yes Provider Attestation: The documentation as recorded by the scribe, Ciera Andino accurately reflects the service I personally performed and the decisions made by , Almaz Taylor MD. Status of Scribe Document: Viewed
[2019-08-05 12:34] LABS: ABS Basophils 0.1 10^3/ul (0-0.2); ABS Eosinophils 0.7 10^3/ul (0-0.6); ABS Lymphocytes 1.7 10^3/ul (1.0-4.8); ABS Monocytes 0.6 10^3/ul (0-0.8); ABS Neutrophils 2.3 10^3/ul (1.5-7.7); Eosinophil % 13.1 %; Hematocrit 40 % (42-52); Hemoglobin 13.5 g/dL (14.0-18.0); Lymphocyte % 31.8 %; Mean Corpuscular HGB Conc 34 g/dL (31-36); Mean Corpuscular Hemoglobin 31 pg (27-31); Mean Corpuscular Volume 90 fL (80-94); Mean Platelet Volume 9.4 fL (7.4-10.4); Nucleated Red Blood Cells % 0.1; Platelet Count 203 10^3/uL (150-450); Red Blood Count 4.43 10^6 /uL (4.18-5.48); Red Cell Distribution Width 14 % (10-15); White Blood Count 5.4 10^3/uL (3.5-10.8)
[2019-08-05 12:46] LABS: Activated Partial Thrombo Time 34.9 seconds (26.0-38.0); INR 0.97 (0.82-1.09)
[2019-08-05 13:01] LABS: Albumin 4.2 g/dL (3.2-5.2); Albumin/Globulin Ratio 1.6 (1-3); BUN/Creatinine Ratio 11.5 (8-20); Calcium 9.1 mg/dL (8.6-10.3); EGFR African American 95.7 (>60); EGFR Non-African American 79.1 (>60); Globulin 2.6 g/dL (2-4); Magnesium 1.8 mg/dL (1.9-2.7); Potassium 4.2 mmol/L (3.5-5.0); Total Bilirubin 0.4 mg/dL (0.2-1.0); Total Protein 6.8 g/dL (6.4-8.9)
[2019-08-05 13:04] LABS: CKMB ng/mL 2.5 ng/mL (0.6-6.3)
[2019-08-05] MEDS ORDERED: Aspirin 81 mg CHEW TAB* 81 MG TAB.CHEW PO ONE (13:24)
[2019-08-05] MEDS ORDERED: Saline NASAL SPRAY 0.65%* BTL BOTH NARES PRN (14:30)
[2019-08-05] MEDS ORDERED: Pantoprazole IV* 40 MG IV ONE (14:36)
[2019-08-05] MEDS ORDERED: Dextrose 50% VIAL 50 ml IV PUSH PRN (14:46)
[2019-08-05] MEDS ORDERED: Nitroglycerin TAB 0.4 MG* 0.4 MG TAB SL PRN (15:02)
[2019-08-05] MEDS ORDERED: Magnesium Sulfate 1 GM IV* 1 GM/100 ML BAG IV ONE (15:02)
[2019-08-05] MEDS ORDERED: Calcium Carbonate CHEW TAB* 500 MG (TUMS) PO PRN (15:02)
--- NOTE | 2019-08-05 16:45 | ECHO ---
*[facility]* [place] [address] Fax #: [phone] Transthoracic Echocardiogram Patient: Rivas Taylor : 1955 Study Date: 08/05/2019 Age: 63 Gender: M HR: 51 bpm Height: 66 in /167.6 cm BSA: 1.89 m^2 Weight: 174.6 lb /79.4 kg BMI: 28.2 kg/m^2 *Surveillance Operator: * Bibi Cash RD *Referring Physician: * Laine JimenezReading Physician: * Emil Bonilla MD Indications: Chest Pain, unspecified. History: Risk factors: Hypertension. Diabetes mellitus. Dyslipidemia. Conclusions Summary: - Left ventricle: Systolic function is normal. The estimated ejection fraction is 60-65%. Wall motion is normal; there are no regional wall motion abnormalities. - Right ventricle: Systolic pressure is within the normal range. - Mitral valve: There is trace to mild regurgitation. - Aortic valve: There is no evidence of stenosis. There is no significant regurgitation. - Tricuspid valve: There is mild regurgitation. - Pericardium, extracardiac: There is no significant pericardial effusion. - Pulmonary arteries: Systolic pressure is within the normal range. - Study data: No prior study is available for comparison. Study data: Transthoracic echocardiogram. Procedure: Transthoracic echocardiography was performed. Image quality was good. Complete 2D, spectral Doppler, and color flow Doppler. Location: Bedside. Patient status: Inpatient. Patient room number: 444-1. No prior study is available for comparison. Rhythm: Bradycardia. Findings Left ventricle: The cavity size is normal. There is mild concentric hypertrophy. Systolic function is normal. The estimated ejection fraction is 60-65%. Wall motion is normal; there are no regional wall motion abnormalities. There is no consistent Doppler evidence of clinically significant diastolic dysfunction. Right ventricle: The cavity size is mildly dilated. Systolic function is normal. Systolic pressure is within the normal range. Left atrium: The atrium is at the upper limits of normal in size. Right atrium: The atrium is normal in size. Mitral valve: The leaflets are mildly thickened. There is no evidence of stenosis. There is trace to mild regurgitation. Aortic valve: The valve is trileaflet. The leaflets are mildly thickened. There is no evidence of stenosis. There is no significant regurgitation. Tricuspid valve: The leaflets are normal thickness. There is no evidence of stenosis. There is mild regurgitation. Pulmonic valve: The leaflets are normal thickness. There is no evidence of stenosis. There is trace regurgitation. Aorta: Aortic root: The aortic root is appears normal. Ascending aorta: The ascending aorta is mildly dilated. Aortic arch: The aortic arch is appears normal. Pericardium: A prominent pericardial fat pad is present. There is no significant pericardial effusion. Pulmonary arteries: The main pulmonary artery is normal-sized. Systolic pressure is within the normal range. Systemic veins: Inferior vena cava: The vessel is normal in size. There is (>= 50%) respiratory change in the IVC dimension. Measurements Left ventricle Value Ref Aortic valve Value Ref CHADWICK, LAX 4.4 cm 4.2 - 5.8 Raj diam, ED 2.0 cm ----- ESD, LAX 3.1 cm 2.5 - 4.0 Peak v, S 1.37 m/sec ----- FS, LAX 29 % 25 - 43 VTI, S 27.2 cm ----- PW, ED, LAX (H) 1.1 cm 0.6 - 1.0 Mean grad, S 3.0 mm Hg ----- FS 29 % 25 - 43 Peak grad, S 8.0 mm Hg ----- PW, ED (H) 1.1 cm 0.6 - 1.0 LVOT/AV, VTI ratio 0.81 ----- E', lat raj, TDI (L) 9.4 cm/sec >=10.0 E/e', lat raj, 12 Mitral valve Value Ref TDI Peak E 1.12 m/sec ----- E', med raj, TDI 7.0 cm/sec >=7.0 Peak A 0.87 m/sec --- -- E/e', med raj, 16 Decel time 155 ms ----- TDI Peak grad, D 5.0 mm Hg ----- E', avg, TDI 8.2 cm/sec Peak E/A ratio 1.3 ----- E/e', avg, TDI 14 <=14 Pulmonic valve Value Ref LVOT Value Ref Peak v, S 0.86 m/sec ----- Peak cassi, S 1.02 m/sec Peak grad, S 3.0 mm Hg ----- VTI, S 22.0 cm Mean grad, S 2 mm Hg Tricuspid valve Value Ref TR peak v 2.3 m/sec <=2.8 Ventricular septum Value Ref Peak RV-RA grad, S 21 mm Hg ----- IVS, ED (H) 1.2 cm 0.6 - 1.0 Aortic root Value Ref Right ventricle Value Ref Root diam 3.3 cm <4.1 CHADWICK, LAX 3.5 cm CHADWICK minor ax, A4C (H) 4.6 cm 1.9 - 3.5 Ascending aorta Value Ref mid AAo AP diam, S 3.7 cm ----- Pressure, S 24 mm Hg Aortic arch Value Ref Left atrium Value Ref Arch diam 1.8 cm ----- AP dim, ES 3.40 cm 3.00 - 4.00 Decending aorta Value Ref ML dim, A4C 4.1 cm Brendan peak cassi 0.51 m/sec ----- SI dim, A4C 5.4 cm Vol/bsa, ES, 1-p 28 ml/m^2 12 - 37 Pulmonary artery Value Ref A4C Pressure, S 21.0 mm Hg ----- Vol/bsa, ES, A/L 33 ml/m^2 16 - 34 Inferior vena cava Value Ref Right atrium Value Ref Diam 1.9 cm ----- SI dim, ES 4.5 cm 3.4 - 5.3 ML dim, ES, A4C 4.3 cm 2.6 - 4.4 SI dim, ES, A4C 4.5 cm 3.4 - 5.3 Estimated RAP 3 mm Hg Legend: (L) and (H) gwendolyn values outside specified reference range. Prepared and electronically signed by Emil Bonilla MD 08/05/2019 16:45
[2019-08-05] MEDS: Insulin LISPRO* 1 UNITS UNIT SUBCUT SCH ×2 (17:07→20:56)
--- NOTE | 2019-08-05 17:55 | HP ---
CC: Dr. Tovar. HISTORY AND PHYSICAL: DATE OF ADMISSION: 08/05/19 TIME OF EVALUATION: 2:30 p.m. PRIMARY CARE PROVIDER: Dr. Tovar. CHIEF COMPLAINT: Chest pain. HISTORY OF PRESENT ILLNESS: Mr. Taylor is a 63-year-old Indian-speaking male with a past medical h istory of hypertension, hyperlipidemia, type 2 diabetes, postnasal drip/allergic rhinitis who present ed to the emergency room with complaints of chest pain. The patient states that for a couple of weeks, he has had left-sided chest pain that he describes as a discomfort and burning sensation to the left side of his chest rated at 4-5/10. The pain may happe n with exertion and also while at rest, but he thinks it is probably worse when he eats. He describes many years ago he would have problems with "stomach acid." He states that he would eat and he felt like he was "ruminant." He would eat and the food would keep coming back up. He states that he changed his diet and he was trying to eat a healthier stuff with vegetables and fruits and he states that those GI symptoms resolved, but he thinks they are coming back now although they feel li ttle different from before. He denies palpitations, shortness of breath, urinary or bowel complaints . He does complain of significant postnasal drip that he states causes large amount of phlegm that h e has to expectorate. He states that he does not understand where "this much phlegm comes from." He saw his primary care provider recently and was prescribed fluticasone and saline nasal spray, but he does not feel any improvement yet, although this was started recently. PAST MEDICAL HISTORY: 1. Hypertension. 2. Hyperlipidemia. 3. Type 2 diabetes. 4. Allergic rhinitis/postnasal drip. PAST SURGICAL HISTORY: Denies. ALLERGIES: With LISINOPRIL the patient had cough. MEDICATION LIST: 1. Alogliptin 25 mg p.o. daily. 2. Saline nasal spray 1 spray to both nares as needed for allergy symptoms. 3. Fluticasone nasal spray 1 spray to both nares twice a day. 4. Ibuprofen 600 mg p.o. t.i.d. as needed for pain. 5. Losartan 25 mg p.o. daily. 6. Metformin 500 mg p.o. t.i.d. 7. Simvastatin 5 mg p.o. daily. FAMILY HISTORY: The patient's mother in her 70s. He thinks that she had a gastric ulcer that required multiple surgeries and eventually she passed after one of those. His father also in hi s late 60s, but he does not know the cause. SOCIAL HISTORY: The patient denies tobacco, alcohol or drug use. He is from [facility] [place] he has been in the [place] for more than 20 years. 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 He retired in 2016 and moved to the [facility]. He states chikis t he has no family or friends in the [facility]. REVIEW OF SYSTEMS: A 14-point review of systems was performed and all the pertinent negative finding s are in the HPI. PHYSICAL EXAMINATION GENERAL: The patient is a pleasant gentleman lying in the ED stretcher, in no acute distress. VITAL SIGNS: Temperature 97.8, heart rate is 65, respiratory rate is 20, oxygen saturation is 100% o n room air. Blood pressure is 148/83. HEENT: Pupils are equal. Moist mucous membranes. CVS: Normal S1 and S2. Regular rate and rhythm. CHEST: Breath sounds bilaterally with no added sounds. ABDOMEN: Soft, nontender, nondistended. Bowel sounds are present. EXTREMITIES: No edema. NEUROLOGIC: He is alert and oriented x3. Able to move all all 4 extremities. DIAGNOSTIC STUDIES/LAB DATA: The patient had a CBC that showed WBC of 5.4, hemoglobin of 13.5, helder tocrit of 40, platelets of 203 with 41% neutrophils. INR was 0.97. D-dimer is less than 200. Chemi stry showed a sodium of 149, potassium of 4.2, chloride of 106, bicarb of 27, BUN of 11, creatinine o f 0.96. Glucose of 122. Lactic acid was 1.8. Calcium was 9.1, magnesium was 1.8. LFTs were normal . First troponin was 0. BNP was 22. EKG done on 08/05/19 at 11:38 a.m. showed sinus bradycardia at 58 beats per minute with no acute isch emic changes. His EKG today looks better than his EKG in 2017. At that time, he had EKG changes in t he inferior leads with some ST elevation. At that time, he had presented to the emergency room with complaints of chest pain and serial troponins were negative. He was discharged from the ED at that t luisa, but as far as I can see on the records there was no further cardiac workup. ASSESSMENT AND PLAN: Mr. Taylor is a 63-year-old male with a past medical history of hypertension, h yperlipidemia, type 2 diabetes, seasonal allergies who presents to the emergency room with complaints of episodes of chest pain who was going to be admitted for further workup. 1. Chest pain, rule out acute coronary syndrome. Although the patient describes his pain as a burni ng sensation and he thinks it is related to acid in his stomach, he does have risk factors for jesus ry artery disease. I was especially concerned that he had EKG changes in 2017 corresponding to his i nferior wall, but as far as I can see and as far as the patient can tell me, he had no further cardi ac workup performed. He would be admitted as observation to the telemetry floor. I an going to giuseppe ck serial troponins, fasting lipid profile, and he will undergo an exercise stress test in the [facility]. He states that he is able to ambulate with no issues that he lives on the 9th floor and he can go upstairs with no problem, but as I said before, I am especially concerned with the fact that he had EKG changes of the inferior wall in the test and his EKG appears to be improved now. This could repr esent pseudonormalization. He will be continued on aspirin and statin. He is chest-pain free at thi s point, so I do not think further measures including anticoagulation are indicated at this time. Th e patient's pain also has GI characteristics. He will receive pantoprazole for now and he may be in a state of being discharged on a PPI. 2. Hypertension is borderline controlled at this time. I will continue his losartan and monitor. 3. Type 2 diabetes. We will continue metformin and check a hemoglobin A1c, and we will monitor his fingersticks and cover with Lispro sliding scale. If the patient's stress test is positive and requi res a cardiac cath, we will have to discontinue his metformin. 4. Allergic rhinitis. We will continue fluticasone and saline nasal spray. 5. Social isolation. I believe one of the patient's major issue at this time is that he feels isola placido in [place]. He has no family or friends and he feels like "no one in this town speaks Indian." We will request a psychiatric social worker supervisor consultation to give him information about Cultural Groups i n the [place] area. 6. DVT prophylaxis. The patient has a score of 2 on the DVT prophylaxis assessment guide and he kristopher l be started subcu on his heparin. 7. Code status is full. TIME SPENT: Approximately 60 minutes was spent with patient interview, medical record review, and ph ysical examination to complete this admission. More than half of this time was spent [id number]-[id number] wi th the patient and coordination of care. [id number]/CPS #: [id number]
[2019-08-05] MEDS ORDERED: metFORMIN* 500 MG TAB PO SCH (21:00)
[2019-08-05] MEDS: Fluticasone NASAL SPRAY 50MCG* 16 gm SPRAY BTL BOTH NARES SCH (21:04)
[2019-08-05] MEDS: metFORMIN* 500 MG TAB PO SCH (21:06)
[2019-08-05] MEDS: Heparin VIAL(*) 5000 UNITS/ML VIAL (FIVE THOUSAND) SUBCUT SCH (21:07)
[2019-08-06] MEDS ORDERED: Acetaminophen TAB* 325 MG PO PRN (00:35)
[2019-08-06] MEDS: Heparin VIAL(*) 5000 UNITS/ML VIAL (FIVE THOUSAND) SUBCUT SCH (05:29)
[2019-08-06 07:45] LABS: HDL Cholesterol 41.2 mg/dL
[2019-08-06] MEDS: Insulin LISPRO* 1 UNITS UNIT SUBCUT SCH ×2 (08:38→12:49)
[2019-08-06] MEDS ORDERED: Pantoprazole IV* 40 MG IV SCH (09:00)
[2019-08-06] MEDS ORDERED: Losartan TAB* 25 MG PO SCH (09:00)
[2019-08-06] MEDS ORDERED: CMC:Simvastatin TAB(NF) 10 MG TAB PO SCH (09:00)
[2019-08-06] MEDS ORDERED: Aspirin EC TAB* 81 MG TAB.EC PO SCH (09:00)
[2019-08-06] MEDS: Fluticasone NASAL SPRAY 50MCG* 16 gm SPRAY BTL BOTH NARES SCH (12:43)
[2019-08-06] MEDS: metFORMIN* 500 MG TAB PO SCH ×2 (12:43→15:02)
[2019-08-06 12:50] VITALS: BP 131/76
[2019-08-06] MEDS ORDERED: Famotidine TAB* 20 MG PO ONE (14:21)
[2019-08-06] MEDS ORDERED: Enoxaparin(*) 40 MG/0.4 ML SYR SUBCUT SCH (21:00)
--- NOTE | 2019-08-06 23:35 | DS ---
CC: Dr. Maida Mcgee * DISCHARGE SUMMARY: DATE OF ADMISSION: 08/05/19 DATE OF DISCHARGE: 08/06/19 PRIMARY CARE PHYSICIAN: Maida Mcgee MD PRIMARY DIAGNOSIS: Reflux. SECONDARY DIAGNOSES: 1. Hypertension. 2. Type 2 diabetes. 3. Allergic rhinitis. DISCHARGE MEDICATIONS: 1. Metformin 500 mg t.i.d. 2. Losartan 25 mg daily. 3. Alogliptin 25 mg daily. 4. Simvastatin 5 mg daily. 5. Ranitidine 150 mg daily as needed for reflux. 6. Fluticasone 1 spray to both nostrils daily. HISTORY OF PRESENT ILLNESS: Mr. Taylor is a 63-year-old Mexican speaking man with hypertension, diabetes, and allergic rhinitis who presented to the emergency room with complaints of chest pain. He states that for the last couple of weeks, he has had left-sided chest pain that he describes as a discomfort and burning sensation, rated 4 to 5/10. The pain may happen with exertion and also while at rest, but he thinks it is probably worse when he eats. He describes many years ago, he would have problems with his stomach acid , he would eat and then felt like he was a "ruminant" as he would eat the food and then it would keep coming back up. He had changed his diet and was trying to eat healthier with multiple vegetables and fruits; however, his GI symptoms did not resolve and he thinks they are coming back, although it does have a slightly different character than before. He denies palpitations, shortness of breath, urinary or bowel complaints. He complains of significant postnasal drip , which causes a large amount of phlegm that he has to expectorate. He was recently started on fluticasone nasal spray for his phlegm, but has not noticed any improvement yet. HOSPITAL COURSE: The patient was admitted to observation for inpatient stress test. It was noted that he had an EKG change in 2017 concerning for inferior wall changes; however, no further cardiac workup was performed at that time. He was admitted to telemetry service and had no events throughout his hospitalization. By the next day, the patient had undergone a transthoracic echocardiogram, which was without regional wall motion abnormalities and had a normal ejection fraction without significant valvular disease. He also underwent a nuclear medicine scan, which was without fixed or reversible perfusion defects, with assessment of low risk. The patient was referred for social work help for cultural supports as he feels isolated living in [place], as he does not speak [place]ian, and he was referred to [facility] for which he will attend next week. He also requested a Mexican speaking provider and he was referred to Dr. Maida Mcgee. The patient did report heartburn with associated sour taste in his mouth. He also states that he has been recently taking ibuprofen, sometimes daily, for various body pains. By time of discharge, he was educated on his normal cardiac workup, but he was advised to discontinue use of NSAIDs and to follow up with his primary care provider for testing for H. pylori. For this reason, he was switched to an H2 jillian on discharge as PPIs can cause a decrease in sensitivity of H. pylori stool antigen testing. On day of discharge, 10-point review of systems was performed and significant only for epigastric burning associated with sour taste when the patient is lying flat. He denied exertional chest pain or shortness of breath and was able to tolerate food. PHYSICAL EXAMINATION: The patient is a well-appearing man, who appears his stated age, in no acute distress, alert, interactive. HEENT with moist mucous membranes. CN II through XII intact. Neck: No JVD. Supple. Chest: Clear to auscultation bilaterally. Heart: Regular rate and rhythm. No murmurs, gallops , or rubs. Abdomen: Soft, nontender, nondistended. No epigastric tenderness. Extremities: Warm and well perfused without evidence of edema. Neuro: A and O x3. Moves all extremities symmetrically. DIAGNOSTIC STUDIES/LAB DATA: CBC notable for mild anemia at baseline at 13.5 with normal MCV. BMP unremarkable. LFTs unremarkable. Troponins negative x3. LDL 66 with triglycerides 252 and HDL 41. HgbA1c 6.8. TTE with LV systolic function normal without regional wall motion abnormalities , EF 60% to 65%, right ventricle systolic pressure is within normal range, aortic valve normal, tricuspid valve with mild regurgitation, pulmonary artery systolic pressure within normal range. Nuclear medicine scan without perfusion defect, scan considered low risk. DISCHARGE PLAN: The patient is to establish care with new primary care physician, Dr. Maida Mcgee. It is recommended that he undergo testing for H. pylori. He was advised to avoid NSAIDs and to use an H2 jillian as needed for epigastric pain. He should also undergo workup for his mild normocytic anemia, which should include iron studies and age-appropriate cancer screening. The only changes to his home medications include addition of ranitidine to take as needed for heartburn. The patient should also have ongoing diabetic care including screening for proteinuria and annual foot and eye exams. He was educated on return precautions, which include but not limited to exertional chest pain associated with shortness of breath or diaphoresis or new symptoms of nausea and vomiting. He should eat a healthy diet low in processed foods, low in carbs and resume activity as tolerated. DISPOSITION: To home. CONDITION: Good. TIME SPENT: Approximately 60 minutes were spent on discharge of this patient, more than half of which was spent with care coordination at bedside for interview and exam. [id number]/[facility] #: [id number] SCOTT
== END 2019-08-06 15:45 | disposition home or self-care (01) ==
LOC: ED 11:36 → MEDTELE 14:30
PROVIDERS: ADMIT Internal Medicine; ATTEND Internal Medicine
DX: K21.9 Gastro-esophageal reflux disease without esophagitis (principal); I10 Essential (primary) hypertension; E11.9 Type 2 diabetes mellitus without complications; J30.9 Allergic rhinitis, unspecified; Z79.899 Other long term (current) drug therapy; R07.9 Chest pain, unspecified; Z60.4 Social exclusion and rejection; E78.00 Pure hypercholesterolemia, unspecified; R05 Cough
CPT/HCPCS: 36415; 71045; 78452; 80053; 80061; 82550; 82553; 83036; 83605; 83735; 83880; 84484; 85025; 85379; 85610; 85730; 93005; 93017; 93306; 96365; 96366; 96372; 96375; 96376; 99282; A9270-GY; A9502; G0378; J1644; J3475

== ENCOUNTER 2019-09-04 11:32 | Emergency (ER) | payer OTHER ==
--- NOTE | 2019-09-04 12:10 | ED ---
Lower Extremity - HPI Summary HPI Summary: Patient is a 63 y/o M presenting to the ED for a chief complaint of left foot pain. Patient states that he was exercising on 09/03/19 when he tripped over the root of a tree. Patient has had left foot pain since tripping. On triage, patient rates the pain as 6/10 in severity. Patient denies any aggravating or alleviating factors. Patient is able to bear weight on the left leg. Patient denies fever or headache. Patient denies taking any OTC medications for the pain. Patient has a PMHx of DM and HTN. Patient denies any PSHx. Patient denies alcohol, drug, or tobacco use. Allergies noted. Medications reviewed. - History of Current Complaint Chief Complaint: EDExtremityLower Stated Complaint: ANKLE PAIN Time Seen by Provider: 09/04/19 12:07 Hx Obtained From: Patient Mechanism Of Injury: Other - Tripped over the root of a tree Onset/Duration: Hours - Since 09/03/19 Severity Initially: Moderate Severity Currently: Moderate Pain Intensity: 6 Pain Scale Used: 0-10 Numeric Timing: Constant, Lasting Hours - Since 09/03/19 Location: Is Discrete @ - Left foot Associated Signs And Symptoms: Positive: Other - Negative REYES. Negative: Fever Aggravating Factor(s): Nothing Alleviating Factor(s): Nothing Able to Bear Weight: Yes - Allergies/Home Medications Allergies/Adverse Reactions: Allergies Allergy/AdvReac Type Severity Reaction Status Date / Time lisinopril AdvReac Intermediate Coughing Verified 08/05/19 12:11 PMH/Surg Hx/FS Hx/Imm Hx Previously Healthy: Yes Endocrine/Hematology History: Reports: Hx Diabetes Cardiovascular History: Reports: Hx Angina, Hx Hypercholesterolemia, Hx Hypertension Denies: Hx Congestive Heart Failure Respiratory History: Denies: Hx Asthma, Hx Chronic Obstructive Pulmonary Disease (COPD) History: Reports: Hx Renal Disease Denies: Hx Chronic Renal Failure Sensory History: Denies: Hx Contacts or Glasses, Hx Legally Blind, Hx Deafness, Hx Hearing Aid Opthamlomology History: Denies: Hx Contacts or Glasses, Hx Legally Blind EENT History: Denies: Hx Deafness - Surgical History Surgical History: Yes Surgery Procedure, Year, and Place: Eye surgery Infectious Disease History: No Infectious Disease History: Denies: Traveled Outside the [place] in Last 30 Days - Family History Known Family History: Positive: Cardiac Disease, Hypertension, Diabetes - Social History Occupation: Unemployed Lives: Alone Alcohol Use: None Hx Substance Use: No Substance Use Type: Reports: None Hx Tobacco Use: No Smoking Status (MU): Never Smoked Tobacco Review of Systems Negative: Fever Positive: Arthralgia - Left foot Negative: Headache All Other Systems Reviewed And Are Negative: Yes Physical Exam - Summary Physical Exam Summary: Constitutional: Well-developed, Well-nourished, Alert. (-) Distressed Skin: Warm, Dry HENT: Normocephalic; Atraumatic Eyes: Conjunctiva normal Neck: Musculoskeletal ROM normal neck. (-) JVD, (-) Stridor, (-) Tracheal deviation Cardio: Rhythm regular, rate normal, Heart sounds normal; Intact distal pulses; Radial pulses are 2+ and symmetric. (-) Murmur Pulmonary/Chest wall: Effort normal. (-) Respiratory distress, (-) Wheezes, (-) Rales Abd: Soft, (-) tenderness, (-) Distension, (-) Guarding, (-) Rebound Musculoskeletal: (-) Edema. Limited ROM secondary to pain, tenderness over the proximal great toe, worse under the medial. Lymph: (-) Cervical adenopathy Neuro: Alert, Oriented x3 Psych: Mood and affect Normal Triage Information Reviewed: Yes Vital Signs On Initial Exam: Initial Vitals Temp Pulse Resp BP Pulse Ox 96.6 F 70 18 146/94 100 09/04/19 11:33 09/04/19 11:33 09/04/19 11:33 09/04/19 11:33 09/04/19 11:33 Vital Signs Reviewed: Yes Procedures - Sedation Patient Received Moderate/Deep Sedation with Procedure: No Diagnostics - Vital Signs Vital Signs Temp Pulse Resp BP Pulse Ox 09/04/19 11:33 96.6 F 70 18 146/94 100 - Laboratory Lab Statement: Any lab studies that have been ordered have been reviewed, and results considered in the medical decision making process. - Radiology Foot X-ray Radiology Interpretation Completed By: Radiologist Summary of Radiographic Findings: Foot X-ray IMPRESSION: 1. OSTEOPENIA WITH NO DISPLACED FRACTURE. 2. MILD FIRST MTP OSTEOARTHROPATHY. 3. CALCANEAL ENTHESOPHYTES. Reviewed by ED physician. Lower Extremity Course/Dx - Course Assessment/Plan: Patient is here after his foot. Patient's pain on his lateral first toe with a negative x-ray. Patient was given a postop shoe. - Diagnoses Provider Diagnoses: Sprain of left great toe Discharge ED - Sign-Out/Discharge Documenting (check all that apply): Patient Departure - Discharge - Discharge Plan Condition: Stable Disposition: HOME Patient Education Materials: Sprain (ED) Referrals: Westley Tovar MD [Primary Care Provider] - Additional Instructions: Take ibuprofen 600 mg every 6 hours and elevate and ice the leg. Follow up with a primary care provider in 1-3 days. Return to the Emergency Department for any new or worsening symptoms. - Billing Disposition and Condition Condition: STABLE Disposition: Home - Attestation Statements Document Initiated by Netta: Yes Documenting Taniaibjhonatan: Ciera Venegas Provider For Whom Netta is Documenting (Include Credential): Trace Cabral MD Scribe Attestation: Ciera Burris, scribed for Trace Cabral MD on 09/04/19 at 2123. Scribe Documentation Reviewed: Yes Provider Attestation: The documentation as recorded by the Ciera kathleen accurately reflects the service I personally performed and the decisions made by , Trace Cabral MD Status of Scribe Document: Viewed
[2019-09-04 13:21] VITALS: BP 132/89
== END 2019-09-04 13:25 | disposition home or self-care (01) ==
LOC: ED 11:32
DX: S93.502A Unspecified sprain of left great toe, initial encounter (principal); W18.49XA Other slipping, tripping and stumbling without falling, initial encounter; Y92.9 Unspecified place or not applicable; E11.9 Type 2 diabetes mellitus without complications; I10 Essential (primary) hypertension; E78.00 Pure hypercholesterolemia, unspecified; Z88.8 Allergy status to other drugs, medicaments and biological substances; M89.472 Other hypertrophic osteoarthropathy, left ankle and foot
CPT/HCPCS: 99282

== ENCOUNTER 2019-12-29 15:41 | Emergency (ER) | payer OTHER ==
[2019-12-29] MEDS ORDERED: Fluorescein Sodium TOPICAL* 1 MG TEST STRIP OPHTHALMIC ONE (15:55)
--- NOTE | 2019-12-29 15:56 | ED ---
Throat Pain/Nasal Congestion - HPI Summary HPI Summary: Patient complains of left eye pain and irritation after taking shower today. Patient states he may have gotten shampoo in his eye. Denies any other trauma, pain or symptoms. Denies vision change. Alogliptin Benzoate [Alogliptin] 25 mg PO DAILY 10/09/17 [History Confirmed 11/23] Losartan TAB* [Cozaar TAB*] 25 mg PO DAILY 10/09/17 [History Confirmed 08/05/19] Simvastatin (NF) [Zocor (NF)] 5 mg PO DAILY 10/09/17 [History Confirmed 08/05/19 ] Fluticasone NASAL SPRAY 50MCG* [Flonase NASAL SPRAY 50MCG*] 1 spray BOTH NARES BID 04/25/19 [History Confirmed 08/05/19] metFORMIN* [Glucophage 500 MG TAB *] 500 mg PO TID 04/25/19 [History Confirmed 08/05/19] Deep Sea 0.65% Nasal [place] 1 spray BOTH NARES Q4HR PRN 08/05/19 [History Confirmed 08/05/19] raNITIdine HCL [Ranitidine HCl] 150 mg PO DAILY PRN #90 tablet 08/06/19 [Rx] - History of Current Complaint Chief Complaint: EDEyeProblem Time Seen by Provider: 12/29/19 15:49 Hx Obtained From: Patient Onset/Duration: Sudden Onset, Lasting Hours Severity: Moderate Associated Signs And Symptoms: Positive: Negative Cough: None - Allergies/Home Medications Allergies/Adverse Reactions: Allergies Allergy/AdvReac Type Severity Reaction Status Date / Time lisinopril AdvReac Intermediate Coughing Verified 12/29/19 15:48 Home Medications: Home Medications Alogliptin Benzoate [Alogliptin] 25 mg PO DAILY 10/09/17 [History Confirmed 11/23] Losartan TAB* [Cozaar TAB*] 25 mg PO DAILY 10/09/17 [History Confirmed 08/05/19] Simvastatin (NF) [Zocor (NF)] 5 mg PO DAILY 10/09/17 [History Confirmed 08/05/19 ] Fluticasone NASAL SPRAY 50MCG* [Flonase NASAL SPRAY 50MCG*] 1 spray BOTH NARES BID 04/25/19 [History Confirmed 08/05/19] metFORMIN* [Glucophage 500 MG TAB *] 500 mg PO TID 04/25/19 [History Confirmed 08/05/19] Deep Sea 0.65% Nasal [place] 1 spray BOTH NARES Q4HR PRN 08/05/19 [History Confirmed 08/05/19] raNITIdine HCL [Ranitidine HCl] 150 mg PO DAILY PRN #90 tablet 08/06/19 [Rx] PMH/Surg Hx/FS Hx/Imm Hx Endocrine/Hematology History: Reports: Hx Diabetes Cardiovascular History: Reports: Hx Angina, Hx Hypercholesterolemia, Hx Hypertension Denies: Hx Congestive Heart Failure Respiratory History: Denies: Hx Asthma, Hx Chronic Obstructive Pulmonary Disease (COPD) History: Reports: Hx Renal Disease Denies: Hx Chronic Renal Failure Sensory History: Denies: Hx Contacts or Glasses, Hx Legally Blind, Hx Deafness, Hx Hearing Aid Opthamlomology History: Denies: Hx Contacts or Glasses, Hx Legally Blind Neurological History: Denies: Hx Dementia - Surgical History Surgery Procedure, Year, and Place: Eye surgery Infectious Disease History: No Infectious Disease History: Denies: Traveled Outside the [place] in Last 30 Days - Family History Known Family History: Positive: Cardiac Disease, Hypertension, Diabetes - Social History Alcohol Use: None Hx Substance Use: No Substance Use Type: Reports: None Hx Tobacco Use: No Smoking Status (MU): Never Smoked Tobacco Review of Systems Constitutional: Negative Eyes: Other ENT: Negative Cardiovascular: Negative Respiratory: Negative Gastrointestinal: Negative Genitourinary: Negative Musculoskeletal: Negative Skin: Negative Neurological/Mental Status: Negative Psychological: Normal All Other Systems Reviewed And Are Negative: Yes Physical Exam - Summary Physical Exam Summary: EOMI. Pupils equal and reactive. Conjunctival injection left eye. No foreign body or abrasion or ulceration noted on ultraviolet exam. Positive medial pinguecula left eye and right eye. Triage Information Reviewed: Yes Vital Signs On Initial Exam: Initial Vitals Temp Pulse Resp BP Pulse Ox 97.2 F 71 19 139/92 99 12/29/19 15:44 12/29/19 15:44 12/29/19 15:44 12/29/19 15:44 12/29/19 15:44 Vital Signs Reviewed: Yes Appearance: Positive: Well-Appearing Skin: Positive: Warm Head/Face: Positive: Normal Head/Face Inspection Eyes: Positive: Normal ENT: Positive: Normal ENT inspection Neck: Positive: Supple Respiratory/Lung Sounds: Positive: Clear to Auscultation Cardiovascular: Positive: Normal Abdomen Description: Positive: Nontender Musculoskeletal: Positive: Normal Neurological: Positive: Normal Psychiatric: Positive: Normal AVPU Assessment: Alert - [place] Coma Scale Best Eye Response: 4 - Spontaneous Best Motor Response: 6 - Obeys Commands Best Verbal Response: 5 - Oriented Coma Scale Total: 15 Procedures - Sedation Patient Received Moderate/Deep Sedation with Procedure: No Diagnostics - Vital Signs Vital Signs Temp Pulse Resp BP Pulse Ox 12/29/19 15:44 97.2 F 71 19 139/92 99 - Laboratory Lab Statement: Any lab studies that have been ordered have been reviewed, and results considered in the medical decision making process. EENT Course/Dx - Course Course Of Treatment: Patient complains of left eye pain and irritation after taking shower today. Patient states he may have gotten shampoo in his eye. Denies any other trauma, pain or symptoms. Denies vision change. Vital signs within normal limits. Eye flushed with 4 syringes of normal saline. Normal pH. - Diagnoses Provider Diagnoses: Irritation of left eye Discharge ED - Sign-Out/Discharge Documenting (check all that apply): Patient Departure - Discharge Plan Condition: Stable Disposition: HOME Patient Education Materials: Eye Pain (ED) Referrals: Westley Tovar MD [Primary Care Provider] - Sincere Yañez MD [Medical Doctor] - Additional Instructions: If eye pain persists follow-up with ophthalmology Dr. Yañez for further evaluation. Return to the ED for any new or worsening symptoms. - Billing Disposition and Condition Condition: STABLE Disposition: Home - Attestation Statements Provider Attestation: I was available for consultation for this patient. I did not evaluate the patient or participate in any medical decision making or disposition decisions unless I am specifically named in the chart as having consulted on the patient. If I have consulted on the patient, please see my own ED note on the patient encounter. Diya So MD
[2019-12-29] MEDS ORDERED: Tetracaine 0.5% OPTH.SOL 4 ML* 1 DROP BTL ONE ×2 (16:00)
[2019-12-29 16:39] VITALS: BP 151/97
== END 2019-12-29 16:38 | disposition home or self-care (01) ==
LOC: ED 15:41
DX: H57.89 Other specified disorders of eye and adnexa (principal); E11.9 Type 2 diabetes mellitus without complications; E78.00 Pure hypercholesterolemia, unspecified; I10 Essential (primary) hypertension; Z79.84 Long term (current) use of oral hypoglycemic drugs; Z79.899 Other long term (current) drug therapy; Z88.8 Allergy status to other drugs, medicaments and biological substances
CPT/HCPCS: 99281; A9270-GY